=== PATIENT | male | born 1985 | race Caucasian/White ===

== ENCOUNTER 2023-07-25 14:50 | Outpatient (REF) | payer BC, SELFPAY ==
--- NOTE | ~2023-07-25 | XR_ITS ---
EXAMINATION: XR CERVICAL SPINE CLINICAL INFORMATION: Abnormal reflex. COMPARISON: None available. TECHNIQUE: AP, lateral, flexion and extension views of the cervical spine. FINDINGS: Reversal of the normal cervical lordosis. Interdisc devices at C4-C5 and C5-C6. Advanced degenerative changes with loss of disc space height and hypertrophic change at C3-C4. Minimal anterolisthesis of C3 on C4 with flexion. XR/XR cervical spine 4V IMPRESSION: Interdisc devices at C4-C5 and C5-C6. Advanced degenerative changes at C3-C4. Reversal of the normal cervical lordosis.
== END 2023-07-25 14:51 | disposition home or self-care (01) ==
LOC: HO.HOSX 14:50
PROVIDERS: PCP Internal Medicine; Visit Provider Physician Assistant
DX: M54.2 Cervicalgia (principal); R29.2 Abnormal reflex
CPT/HCPCS: 72050

== ENCOUNTER 2023-07-25 14:50 | Outpatient (AMB) | payer BC, SELFPAY ==
--- NOTE | 2023-07-25 15:14 | A.SPINEOV_ITS ---
Intake Intake Visit Reasons: cervical radiculopathy Intake Note: Mr. Jenkins is here today c/o neck pain. 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 He reports that he has a history of previous surgery with our office and had C3-4 , C4-[address] Mcgowan in 2021 at [facility]. He states that he felt his symptoms were relieved, then began having gradual onset posterior neck pain a few months ago with some shooting pains up into the posterior aspect of his skull and down his cervical spine. 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 He reports he has tried several irrw-iyu-mjsxhgl remedies including Tylenol, ibuprofen, ice, heat, and rjfo-lld-xnkrqrw pain patches without alleviation of symptoms. Most recently he went and saw his primary care physician on Friday and had to be prescribed a NSAID medication and a muscle relaxer, which only provided minimal relief. He has spent the last 2 months trying to stretch/ exercises neck and has been utilizing at home workout programs. This has not been helpful for him and only aggravates his symptoms. On exam Frandy has 5/5 strength in his upper and lower extremities. He has no sensory deficits. He does have pain to direct palpation of the posterior cervical spine, and some pain to palpation of his bilateral trapezius. He has new hyperreflexia in his upper and lower extremities, worse in the lower extremities. He has new 3-4 beats of clonus in his bilateral lower extremities. Despite these findings he does seem to ambulate well at this time. (-) Tripathi's. Frandy's exam is concerning for central cord compression of the cervical spine, as he is having both significant hyper reflexia and multiple beats of clonus. We sent Frandy was sent upstairs to [facility] to have cervical spine x-rays completed to attempt to evaluate for placement of his artificial disc. It seems that both of his artificial discs remain in place at C3-4 and C4-5, with some osteophyte bridging on the anterior portion of the disc space. Since we have ruled out an instrumentation cause, we will need an MRI of the cervical spine to evaluate for spinal cord myelopathy, as he has several myelopathic symptoms that need to be evaluated. Total amount of time spent in this visit was 45 minutes in discussion of symptoms, X-ray cervical spine imaging results and subsequent plan of care. Diogenes Mcgowan MD,PhD [facility] (2) Hyperreflexia: Code(s): R29.2 - Abnormal reflex Orders: Orders XR cervical spine 4V Today M54.2 - Cervicalgia Coding Level of Care Code New Pt Level 4 (45714) Diagnoses Cervicalgia M54.2 Hyperreflexia R29.2
== END 2023-07-25 15:59 | disposition home or self-care (01) ==
PROVIDERS: PCP Internal Medicine; Visit Provider Physician Assistant
DX: M54.2 Cervicalgia (principal); R29.2 Abnormal reflex
CPT/HCPCS: 99204

== ENCOUNTER 2023-08-02 13:39 | Outpatient (REF) | payer BC, SELFPAY ==
--- NOTE | ~2023-08-02 | MR_ITS ---
EXAMINATION: MR CERVICAL SPINE WITHOUT AND WITH CONTRAST CLINICAL INFORMATION: Cervicalgia, hyperreflexia COMPARISON: None available. TECHNIQUE: MRI of the cervical spine was obtained using routine sequences with and without contrast. Intravenous contrast dose was not available at the time of dictation will be added subsequently as an addendum. FINDINGS: Intervertebral disc prostheses are noted at C4-C5 and C5-C6. Hardware-related susceptibility artifact from somewhat limits assessment of the instrumented levels Reversal of usual cervical lordosis. No suspicious marrow signal or focal osseous lesion. T1 vertebral body hemangioma. No marrow edema The vertebral body heights are maintained. Mild disc desiccation and height loss at C3-C4 and C6-C7.No definite cord signal abnormality is identified. Apparent punctate focus of signal abnormality in the right ventral cord at C5 (series 6 image 17) is likely artifactual. No abnormal intramedullary enhancement. Limited evaluation of the soft tissues of the neck without demonstrated abnormalities. The flow voids of the major cervical vessels are maintained. Normal appearance of the cervicomedullary junction and visualized posterior fossa SPINAL LEVELS: C2-C3: No significant spinal canal or neuroforaminal narrowing. Hypertrophy and ankylosis of the right facet joint C3-C4: Disc osteophyte complex and right greater than left uncovertebral vertebral hypertrophy. Mild left and moderate right neural foraminal narrowing. No significant central spinal canal stenosis. C4-C5: Not well evaluated due to hardware-related artifact. No evidence of high-grade canal or neuroforaminal narrowing C5-C6: Not well evaluated due to hardware-related artifact. No evidence of high-grade canal or neuroforaminal narrowing C6-C7: No significant spinal canal or neuroforaminal narrowing C7-T1: No significant spinal canal or neuroforaminal narrowing. Left facet arthropathy. MR/MR cervical spine wo/w con IMPRESSION: 1. Intervertebral disc prostheses at C4-C5 and C5-C6. Hardware-related susceptibility artifact somewhat limits assessment of the instrumented levels without evidence of high-grade canal or neural foraminal narrowing. 2. Mild degenerative changes at C3-C4 with mild left and moderate right neural foraminal narrowing. 3. No definite cord signal abnormality or abnormal intramedullary enhancement. Apparent punctate focus of signal abnormality in the right ventral cord at C5 is likely artifactual.
[2023-08-02] MEDS: gadobutroL 7.5 ML VIAL IVPUSH (14:44)
== END 2023-08-02 13:40 | disposition home or self-care (01) ==
LOC: HO.MRI 13:39
PROVIDERS: Visit Provider Physician Assistant
DX: M54.2 Cervicalgia (principal); R29.2 Abnormal reflex
CPT/HCPCS: 72156; A9585

== ENCOUNTER 2023-08-08 11:44 | Outpatient (AMB) | payer BC, SELFPAY ==
--- NOTE | 2023-08-08 11:59 | A.SPINEOV_ITS ---
Intake Intake Visit Reasons: MRI follow up Intake Note: Mr. Jenkins is here today to discuss the results of his MRI. Insurance Representative Required: No Assessment & Plan Assessment & Plan (1) Cervicalgia: Code(s): M54.2 - Cervicalgia Plan Mr Jenkins is back in the office today for follow-up. He underwent a C4-5, C5-6 total disc arthroplasty that fused itself. He has been having neck pain and underwent an MRI at [place] for follow-up. He also has pain radiating down across the top of his shoulders. His MRI shows that he has evidence of as mentioned fusion along the disc implants. He has what looks like some slight kyphosis above the fusion at C3-4 with some worsening of the disc degeneration at that level. C6-7 and C7-T1 look okay. I do not see any significant central canal stenosis. There is right-sided residual myelomalacia behind the C4-5 and C5-6 levels suggestive of his previous spinal cord compression. He does not have any myelopathic symptoms this is strictly a pain issue. I think this C3-4 disc could be the source of his pain. It could also be the fact that the artificial discs fused. At this point, he is telling me the pain is quite severe and he is having lot of difficulty with work. I will talk to Dr. Mcgowan to see if he thinks it worthwhile to fuse the C3-4 disc space. Total amount of time spent in this visit was 20 minutes in discussion of symptoms, cervical spine imaging results and subsequent plan of care Tyrell Mcgowan MD,PhD [facility] Coding Level of Care Code Est Pt Level 3 (61017) Diagnoses Cervicalgia M54.2
== END 2023-08-08 12:45 | disposition home or self-care (01) ==
PROVIDERS: PCP Internal Medicine; Visit Provider Physician Assistant
DX: M54.2 Cervicalgia (principal)
CPT/HCPCS: 99213

== ENCOUNTER → 2023-08-08 11:44 | Outpatient (BNVA) | payer BC, SELFPAY | PROVIDERS: PCP Internal Medicine; Visit Provider Physician Assistant ==